=== PATIENT | female | born 2000 | race Two or more races ===

== ENCOUNTER 2025-07-11 10:28 | Outpatient (AMB) | payer MEDICAID, SELFPAY ==
--- NOTE | 2025-07-11 10:34 | GSCOFFNT_ITS ---
Vital Signs - [facility] 07/11/25 10:35 Height 1.52 m Height Method Measured Weight 63.163 kg Weight Measurement Method Standing Scale BMI 27.1 BP 111/75 Blood Pressure Source Automatic Cuff Blood Pressure Location Left Upper Arm Position Sitting Respiration 18 Pulse 79 Pulse Source Monitor Temp 97.3 F Temp Source Temporal Artery Scan Pulse Oximetry (%) 98 Oxygen Delivery Method Room Air Med/Allergies Allergies & Medications Allergies pseudoephedrine (From Sudafed) Allergy (Verified 07/11/25 10:36) Medication Reconciliation No Known Home Medications 07/11/25 [History Confirmed 07/11/25] MA Intake Visit Data Collection New Patient or Established: Established Patient (seen at [facility] within 3 years) Seen by Clinical Staff ONLY (RN/MA): No Reason for Visit:: REFERRAL GALLSTONES Pain Present Currently: No Pain Scale Used: Walden-Szymanski/Numerical [employer] Required: No PCP or OBGYN visit in last 3 months: Yes Hx Now: No Do You Feel Safe at Home: Yes Authorities Contacted: N/A Smoking Status Smoking Status: Never smoker Immunization / Flu Flu Vaccine in the Last 12 Months: No Flu Vaccine Exclusion Criteria: Refused by Patient Past Medical History Social History SMOKING STATUS: Smoking status: Never smoker HPI HPI Narrative 25F referred for symptomatic cholelithiasis. HISTORY OF PRESENT ILLNESS I, Matilde Summers, have obtained verbal consent from the patient, to be recorded during this encounter which may include, but not limited to, medical history, examination, treatment plans, and relevant health information.? Patient was informed that recording will be read and reviewed by myself before inclusion in the medical chart. The patient is a female who presents for gallstones. She reports being diagnosed with gallbladder sludge approximately 2 years ago, but no treatment was initiated at that time. Recently, she has been experiencing recurrent gallbladder pain, which she describes as cramp-like and progressively worsening. The pain is most prominent in the epigastrium but sometimes involves her lower abdominal as well. The most recent episode occurred last week and was more severe than previous ones. The pain initially feels similar to menstrual cramps but intensifies and radiates to her back. She has noticed that spicy foods can trigger the pain. Severe episodes have led to vomiting, and she has experienced diarrhea once or twice, but not consistently with each pain episode. She has been avoiding spicy foods in an attempt to manage the pain. PMH: None PSHx: Csection Meds: None Allergies: Sudafed Social hx: Non smoker ROS Review of Systems Systems Reviewed: All systems reviewed, normal except as documented Objective/Exam General General Appearance: alert, cooperative and well groomed Resp Respiratory exam: Absent respiratory distress Abdominal Abdominal exam: Present soft; Absent distention or tenderness Results US completed at [facility] 05/07/25: Cholelithiasis, hepatic steatosis Assessment & Plan Diagnosis / Problem List (1) Symptomatic cholelithiasis: Status: Acute Assessment & Plan: Reports worsening gallbladder pain over the past week, described as cramp-like and sometimes radiating to the back. Pain is exacerbated by spicy foods and can lead to vomiting. Given symptoms and presence of gallstones, laparoscopic cholecystectomy is recommended due to the at least 30% chance that symptoms will recur. The procedure, including risks, benefits, and potential complications, was thoroughly discussed. Surgery will be a same-day procedure, requiring general anesthesia and a breathing tube. Possibility of converting to an open procedure if necessary was explained. Postoperative care instructions, including dietary modifications and activity restrictions, were provided. Advised to avoid heavy lifting for 6 weeks post-surgery to minimize risk of hernia. Risks include bleeding, infection, injury to the main bile duct requiring a major reconstructive surgery which would require transfer to another hospital, as well as postoperative hernia and diarrhea. All questions were answered and pt is agreeable to proceeding Plan: Laparoscopic cholecystectomy, possible open to be scheduled [facility] Office Procedures GNS Level of Care Nursing/Assessment Patient Status: Established Patient Nursing Assessment/Reassesment: Medication Reconciliation, Update PMH in EMR and Vital Signs Coordination of Care: Complex Care and Chronic Disease 1-5, Education Complex Pt/Fam, Consent,records obtained, informed consent, Results/Orders obtained and Staff clarify orders Established Patient Charge Established Patient Point Assignment: 95 Established Patient Point Charge: EP Level 3 (80-115) Patient Portal Questionaires Social History Tobacco History Smoking Status: Never smoker Domestic Abuse History Do You Feel Safe at Home: Yes Review of Systems Report any current symptoms Only answer those that you have currently: Past Medical History Past Medical History Have you ever been diagnosed with any of the following:
[2025-07-11 10:35] VITALS: BP 111/75; PULSE 79; RESP 18; TEMP 36.3; O2SAT 98; BMI 27.1
== END 2025-07-11 11:15 | disposition home or self-care (01) ==
LOC: HODSRG 10:28
PROVIDERS: Supervising Provider Surgery; Visit Provider Surgery
DX: K80.20 Calculus of gallbladder without cholecystitis without obstruction (principal)
CPT/HCPCS: 99213; G0463